=== PATIENT | male | born 1940 | race Caucasian/White ===

== ENCOUNTER → 2017-07-15 | Outpatient (CLI) | payer MEDICARE ==
--- NOTE | 2017-07-19 10:45 | RSPPFT ---
DATE OF PROCEDURE: 07/15/17 COMMENTS: VOLUMES DYNAMIC: FVC normal; FEV1 mildly reduced. STATIC: TLC, FRC mildly reduced; RV normal. FLOWS: FEV1% moderately reduced; FEF 25-75 severely reduced. DIFFUSION: Moderately reduced. FLOW VOLUME LOOP: Pattern of variable intrathoracic airways obstruction. IMPRESSION: Moderate obstruction ventilatory defect with mild restriction and a moderate reduction in diffusion. Airways resistance is increased. There is minimal improvement post-bronchodilator.
== END ==
LOC: PHRSP 10:53
PROVIDERS: ATTEND Internal Medicine
DX: J44.9 Chronic obstructive pulmonary disease, unspecified (principal)
CPT/HCPCS: 94060; 94620; 94726; 94729

== ENCOUNTER 2018-04-21 06:31 | Inpatient (IN) ==
[2018-04-21] MEDS ORDERED: Chlorhexidine Gluconate 2% 1 Pack (2 Cloths) TOPICAL SCH (07:15)
[2018-04-21] MEDS ORDERED: Metoprolol Tartrate 25 MG Tablet PO SCH (07:15)
[2018-04-21 07:30] VITALS: BP 140/68; PULSE 58; RESP 20; TEMP 98.7; O2SAT 100
[2018-04-21] MEDS ORDERED: Sodium Chlor 0.9% Inj 500 ML IV.SIG SCH (08:00)
[2018-04-21] MEDS ORDERED: Bupivacaine/Epinephrine Inj 0.25% 50 ML Vial ONE (08:03)
--- NOTE | 2018-04-21 21:51 | ECG ---
Date Performed: 04/21/2018 Time Performed: 08:07:30 PTAGE: 78 years EKG: Sinus rhythm WITH FIRST DEGREE AV BLOCK WITH OCCASIONAL SUPRAVENTRICULAR PREMATURE COMPLEXES ABNORMAL ECG PREVIOUS TRACING : 04/21/2018 06.58 Since the previous tracing, no significant change noted DOCTOR: Marissa Soliz Interpretating Date/Time 04/21/2018 21:49:39
--- NOTE | 2018-04-21 21:53 | ECG ---
Date Performed: 04/21/2018 Time Performed: 06:58:10 PTAGE: 78 years EKG: Sinus rhythm PACS ABNORMAL RHYTHM ECG NO PREVIOUS TRACING DOCTOR: Marissa Soliz Interpretating Date/Time 04/21/2018 21:52:34
== END 2018-04-21 08:50 | disposition home or self-care (01) ==
LOC: HSDI 06:31
PROVIDERS: ADMIT Surgery; ATTEND Surgery

== ENCOUNTER 2018-05-17 11:15 | Inpatient (IN) ==
[2018-05-17] MEDS ORDERED: Metoprolol Tartrate 25 MG Tablet PO ONE (11:46)
[2018-05-17] MEDS ORDERED: Chlorhexidine Gluconate 2% 1 Pack (2 Cloths) TOPICAL ONE (11:46)
[2018-05-17] MEDS ORDERED: Sodium Chlor 0.9% Inj 500 ML IV.SIG SCH (12:00)
[2018-05-17] MEDS ORDERED: ceFAZolin 2 GM Premix Inj 2 GM/100 ML BAG IV.SIG ONE (12:45)
[2018-05-17 12:49] LABS: Albumin 3.9 g/dL (3.4-5.0); Anion Gap 10 meq/L (5-15); Aspartate Aminotransferase 15 U/L (15-37); Blood Urea Nitrogen 24 mg/dL (7-18); Calcium 9.3 mg/dL (8.5-10.1); Carbon Dioxide 26.9 meq/L (21.0-32.0); Chloride 106 meq/L (98-107); Glomerular Filtration Rate 42 mL/min (>89); Glucose,Random 133 mg/dL (74-106); Potassium 4.3 meq/L (3.5-5.1); Sodium 143 meq/L (136-145)
[2018-05-17 12:52] LABS: Alanine Aminotransferase 18 U/L (12-78); Alkaline Phosphatase 54 U/L (45-117); Total Protein 7.9 g/dL (6.4-8.2)
[2018-05-17] MEDS ORDERED: ceFAZolin 2 GM/NS 100 ML IV; Q8H IV.SIG ONE ×2 (13:00)
[2018-05-17] MEDS ORDERED: Lidocaine PF 1% Inj 5 ML Syringe INFILTRATN ONE (14:15)
[2018-05-17] MEDS ORDERED: Glycopyrrolate Inj 1 MG/5 ML Syringe IV.PUSH ONE (15:00)
[2018-05-17] MEDS ORDERED: Sugammadex Inj 200 MG/2 ML Vial IV.PUSH ONE ×2 (16:04→18:29)
[2018-05-17] MEDS ORDERED: Ketorolac Inj 30 MG/ML (IVP) Vial IV.PUSH ONE (18:00)
[2018-05-17] MEDS ORDERED: fentaNYL Citrate Inj 100 MCG/2 ML Ampul ONE (18:34)
[2018-05-17 18:55] LABS: ABG Base Excess -2.7 mmol/L (-2-2); ABG PCO2 37 mmHg (38-42); ABG PO2 207 mmHG (61-120)
[2018-05-17] MEDS ORDERED: Post-op Orders (for Pharmacy) OTHER ONE (20:12)
[2018-05-17] MEDS ORDERED: Naloxone Inj 0.4 MG/ML Vial IV.PUSH PRN ×2 (20:12→20:23)
[2018-05-17] MEDS ORDERED: Benzocaine 20% Oral Spray 60 ML Can OROPHARYNG PRN (20:12)
[2018-05-17] MEDS: Morphine Inj 30 MG/30 ML PCA.VIAL PCA PRN (21:10)
[2018-05-17] MEDS: Sod Chloride 0.9% Inj 1,000 ML IV.CONT SCH (21:26)
--- NOTE | 2018-05-17 21:56 | MP ---
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 POSTOPERATIVE DIAGNOSIS: T3 N0 invasive gastric adenocarcinoma of the lesser curve of the stomach. PROCEDURES PERFORMED: 1. Robotic-assisted partial gastrectomy converted to open subtotal gastrectomy. 2. Open jejunostomy tube placement. ATTENDING SURGEON: Tru Bright MD WOOL BROKER: Staff. ANESTHESIA: General and regional TAP block. BLOOD LOSS: 200 mL. COMPLICATIONS: None. FINDINGS: 1. No definitive malignancy found on robotic partial gastrectomy of the antrum and incisura. 2. Areas of concern, although no definitive malignancy identified on frozen section of the subtotal gastrectomy specimen. INDICATIONS FOR PROCEDURE: The patient is a 78-year-old male with a previous history of multiple malignancies as well as multiple medical comorbidities, who was referred to Surgical Oncology for an incidental finding of an invasive gastric adenocarcinoma. The patient was staged with EOS and found to be T3 N0 adenocarcinoma of the stomach on biopsy. PET scan showed no metastatic disease with a hypermetabolic area at the lesser curvature of the stomach. The patient was recommended to undergo surgery, although he is at increased risk due to the concern about the morbidity of untreated gastric cancer as well potentially curable staged cancer. The patient agreed to undergo the procedure. DESCRIPTION OF PROCEDURE: The patient was taken to the operating room, placed in the supine position, and placed under general endotracheal anesthesia. The patient's abdomen was shaved, prepped and draped in sterile fashion. Timeout was performed. A Milvia direct entry technique was used to enter the abdomen above the umbilicus. Made a 1.5 cm incision with an 11 blade scalpel and we dissected down through subcutaneous tissue and opened the fascia under direct visualization. Directly entered the abdomen with S retractors and placed a 10/12 mm trocar eventually for the camera port. We then placed a 5 mm 30-degree camera into the abdomen and insufflated the abdomen. There was no evidence of any complication from our entry. There was no evidence of any metastatic disease or any obvious intraabdominal pathology. We then placed robot ports. We placed a 10/12 mm insufflator port for the robot sleeve in the most lateral right upper quadrant position under direct visualization of the laparoscope, also placed a 15 mm robot port in the left upper quadrant for the stapling device under direct visualization of the laparoscope. Finally, placed an 8 mm robotic port at the midclavicular line in the right upper quadrant under direct visualization of the laparoscope. We then at this point in time used graspers to survey the abdomen. There was no obvious malignancy seen on the laparoscopy at this time, although there was some fullness appreciated at the area of the incisura or diagnostic laparoscopy and there is no evidence of metastatic disease. I elected to proceed with the partial gastrectomy for malignancy. The robot, the [employer] Winston Si system, was then docked without difficulty. We used the vessel sealer in arm 1, the fenestrated bipolar in arm #2 and the robotic suction binding stitcher on arm 3. We were able to open up the gastrocolic ligament with the vessel sealer. We took down some adhesions with pressure behind the stomach and opened up the gastrohepatic attachments. We were able to take our dissection distally until we were just prior to the pylorus. We used 3 green loads on the robotic stapler to divide the distal stomach proximal to the pylorus without difficulty. We continued our dissection upward. We took down some of the more inferior attachments of the left gastroc at the incisura and ensuring to take any yaajira packets in this area. We then continued our dissection up past the short gastrics. We divided the stomach above the incisura and brought this horizontally across laterally towards the spleen using the green load on the robotic stapler. This essentially freed up our specimen, which was essentially the very distal body of the stomach and antrum. We de-docked to the robot camera arm and then made a small working port incision approximately 4 cm in order to remove our specimen. Specimen was removed, inspected on the back table. There is actually no evidence of any abnormality. This was sent for intraoperative consultation with pathology and no abnormality was noted at this time as well. At this point in time, I felt that the patient may still have malignancy retained, potentially more proximal or distal to our resection; therefore, I elected to open the patient to further explore the patient. We opened the patient with upper midline incision after the dedocking the da Winston Si system. This was an upper midline incision. An Saroj wound retractor was placed. The Bookwalter retractor was also placed. We did some further dissection. We did an omentectomy and passed this off for permanent processing. Omentectomy was performed with the EnSeal device. We further mobilized the pylorus and the first portion of duodenum with an EnSeal device as well as with a right angle retractor. We divided the first portion of duodenum with a blue load on the Solen GI stapler. We also divided the branches from the right gastric with a vascular white load stapler. This was passed off as pylorus. We then removed the body of the stomach by continuing our dissection superiorly up to the level of the left gastrics and taking this up to the fundus with the green loads on the Solen DONYA stapler. This was inspected on the back table and did reveal a polypoid-like mass at the lesser curve consistent with either a polyp or potentially early invasive malignancy. This was sent for pathology report and no definitive malignancy was identified either. We did open up the staple line on the body of the stomach prior to resecting this and explored this and completely mobilized the body of the stomach. It appeared pink and viable, leaving some proximal branch of the left gastric in place. We opened up the staple line of the distal margin and explored the stomach. This was essentially unremarkable. There could be no obvious malignancy on direct visualization of the entire remaining fundus and body of the stomach or with delicate palpation externally and internally. The exception to this was a small polypoid-like lesion that looked more like a polyp, although this was of some concern; therefore, I elected to go ahead and proceed with a subtotal gastrectomy to give the patient the most chance of a curative resection, although the patient did not wish to get a total gastrectomy due to the morbidity associated with this at his age. We took down further short gastrics using the EnSeal device and used green loads on the Solen stapler to divide basically the fundus where it met the body of the stomach and came across, right up to the proximal branches of the left gastric artery. This was passed off for processing by pathology. No specimen from the pylorus or from the body of the stomach was clearly a malignancy, although intraoperative consultation did recommend processing all specimens permanently to find occult malignancy. Again, at this point in time, we have performed a subtotal gastrectomy with normal appearing fundus and proceeded towards reconstruction. I have measured approximately 40 cm past the ligament of Treitz and divided this loop of intestine with the blue load on the Solen stapler. We mobilized some mesentery and brought up the distal limb as a Jones-en-Y reconstruction. We performed an antecolic retrogastric gastrojejunostomy using a blue load on the Solen stapler. The staple defect was closed with another fire on the Solen stapler without difficulty. The NG tube was passed through the stomach and down just past the anastomosis and tied into place. We followed this down and performed a JJ anastomosis, a [id number] functional end-to-end with the blue load on the Solen stapler. The staple defect was closed with a second fire of the blue load Solen stapler. We closed the mesenteric defect and oversewed the suture and staple lines of the gastrojejunostomy as well as the jejunojejunostomy. We then performed a Colten type 14-Chadian jejunostomy tube distal to our JJ anastomosis by about 15 cm. This was brought through a separate stab incision and stand up against the abdominal wall with 3-0 silk sutures. We then turned our attention towards closure. We irrigated out the abdomen until all suctioning was clear. We removed some remaining omentum from the splenic flexure down over our anastomosis of the stomach. We placed a 19-Chadian round Jeyson drain in the right upper quadrant through one of the previous robotic port incisions, laid this by the duodenal stump as well as a prior gastrojejunostomy. We then turned our attention towards closure. We closed the midline with #1 looped PDS suture. We closed the port sites with 3-0 Vicryl, followed by bayron as well as bayron at the midline incision. ATA dressing was applied and sterile dressings were applied at the staple sites. ERIC drain was placed to bulb suction. The J-tube was placed to gravity drain. The patient was discontinued anesthesia after he underwent a TAP block by Anesthesia. He was brought to the recovery room in stable condition. The patient tolerated the procedure well. No apparent complications. Counts were correct. I was present and scrubbed for the entire procedure. MD LEYLA Eugene/josh , 08:44 PM , 09:04 PM
--- NOTE | 2018-05-17 22:47 | P.CONCC ---
History of Present Illness Service: Critical Care Consult date: 05/17/18 Reason for Consult: ICU management Primary Care Provider: Hilary Johnson MD History of Present Illness: 78-year-old male with a previous history of multiple malignancies as well as multiple medical comorbidities, was referred to Surgical Oncology for an incidental finding of an invasive gastric adenocarcinoma. The patient was staged T3 N0 adenocarcinoma of the stomach on biopsy. PET scan showed no metastatic disease with a hypermetabolic area at the lesser curvature of the stomach. The patient was recommended to undergo surgery, although he was considered to be high risk due to his comorbidities. The patient agreed to undergo the procedure and underwent Robotic-assisted partial gastrectomy converted to open subtotal gastrectomy, open jejunostomy tube placement. Prior to surgery patient reported some episodes of bradycardia with nearby syncope. The procedure was uncomplicated and patient has been admitted to ICU for postoperative care management. Review of Systems All other systems reviewed negative except as stated in HPI [facility] - History History Provided By: Patient, Family Member - Medical History Medical History: Medical History (Last Reviewed 05/17/18 @ 12:12 by Linda Anderson RN) Bladder cancer COPD (chronic obstructive pulmonary disease) Chronic kidney disease Colon cancer Diabetes Diminished hearing Esophageal stricture Full dentures Glaucoma History of anesthesia reaction History of colonic polyps History of esophageal dilatation Lung cancer Restless leg syndrome Skin cancer Stomach cancer Wears hearing aid in both ears - Surgical History Surgical History: Surgical History (Last Reviewed 05/17/18 @ 12:12 by Linda Anderson RN) History of lobectomy of lung Hx of partial cystectomy History of cataract extraction with lens replacement - Tobacco History Second Hand Smoke Exposure: No Smoking Status: Never smoker - Alcohol History How Often Do You Have a Drink Containing Alcohol: Never - Substance Use History Substance History: No History of Abuse Medications and Allergies Active Medications: Active Medications Benzocaine (Hurricaine 20% Oral Coloma) 1 spray OROPHARYNG ONCE PRN PRN Reason: SEE LABEL COMMENTS Diphenhydramine HCl (Benadryl Inj) 25 mg IV.PUSH Q6H PRN PRN Reason: ITCHING Enoxaparin Sodium (Lovenox Inj) 40 mg SQ DAILY@2100 ONE Stop: 05/18/18 21:01 Lactated Ringer's (Lr 1000 Ml Inj) 1,000 mls @ 30 mls/hr IV.SIG .Q24H DAVE Stop: 05/18/18 21:19 Last Admin: 05/17/18 12:30 Dose: 30 mls/hr Sodium Chloride (Ns Inj) 500 mls @ 30 mls/hr IV.SIG .Q10H DAVE Last Admin: 05/17/18 12:58 Dose: Not Given Acetaminophen (Ofirmev Inj) 1,000 mg in 100 mls @ 400 mls/hr IV.SIG Q6H DAVE Stop: 05/18/18 16:14 Last Admin: 05/17/18 22:35 Dose: 400 mls/hr Cefazolin Sodium 1,000 mg/ (Sodium Chloride) 100 mls @ 200 mls/hr IV.SIG Q8H DAVE Stop: 05/18/18 18:29 Sodium Chloride (Ns Inj) 1,000 mls @ 100 mls/hr IV.CONT .Q10H DAVE Last Admin: 05/17/18 21:26 Dose: 100 mls/hr Metronidazole/Sodium Chloride (Flagyl 500 Mg Inj) 100 mls @ 200 mls/hr IV.SIG Q8H DAVE Stop: 05/18/18 14:29 Last Admin: 05/17/18 22:08 Dose: 200 mls/hr Morphine Sulfate (Morphine Inj) 30 mg in 30 mls @ 0 mls/hr BUFFERER UNSCH PRN PRN Reason: per BUFFERER parameters Last Admin: 05/17/18 21:10 Dose: 0 mls/hr Miscellaneous Information ([facility] Information) 1 each OTHER UNSCH PRN PRN Reason: SEE LABEL COMMENTS Stop: 05/18/18 20:29 Naloxone HCl (Narcan Inj) 0.4 mg IV.PUSH UNSCH PRN PRN Reason: SEE LABEL COMMENTS Naloxone HCl (Narcan Inj) 0.4 mg IV.PUSH PRN PRN PRN Reason: Resp rate < 10 Ondansetron HCl (Zofran Odt) 4 mg PO Q6H PRN PRN Reason: NAUSEA OR VOMITING Ondansetron HCl (Zofran Inj) 4 mg IV.PUSH Q6H PRN PRN Reason: NAUSEA OR VOMITING Allergies Allergy/AdvReac Type Severity Reaction Status Date / Time levofloxacin [From Levaquin] Allergy Palpitation Verified 05/17/18 12:56 s Home Medications Medication Instructions Recorded Confirmed Type albuterol sulfate [ProAir HFA] 1 puff INHALATION Q4-6H PRN 04/20/18 05/17/18 History brimonidine [Alphagan P] 1 drp OPHTHALMIC (EYE) BID 04/20/18 05/17/18 History calcium carbonate [Calcium 500] 600 mg PO BID 04/20/18 05/17/18 History canagliflozin [Invokana] 50 mg PO DAILY 04/20/18 05/17/18 History carbidopa-levodopa 2 tab PO HS 04/20/18 05/17/18 History cholecalciferol (vitamin D3) 1,000 unit PO BID 04/20/18 05/17/18 History [Vitamin D3] coenzyme Q10 [Co Q-10] 100 mg PO DAILY 04/20/18 05/17/18 History escitalopram oxalate 10 mg PO DAILY 04/20/18 05/17/18 History glimepiride 4 mg PO BID 04/20/18 05/17/18 History ipratropium-albuterol 3 ml INHALATION Q6-8H PRN 04/20/18 05/17/18 History pantoprazole 40 mg PO DAILY 04/20/18 05/17/18 History pioglitazone 30 mg PO DAILY 04/20/18 05/17/18 History pravastatin 40 mg PO DAILY 04/20/18 05/17/18 History temazepam 15 - 30 mg PO HS PRN 04/20/18 05/17/18 History vit C,D-Yk-dxpgs-lutein-zeaxan 1 tab PO BID 04/20/18 05/17/18 History [PreserVision AREDS 2] ascorbic acid (vitamin C) 500 mg PO BID 04/21/18 05/17/18 History aspirin [Aspirin Low Dose] 81 mg PO DAILY 04/21/18 05/17/18 History ginkgo biloba 1 cap PO DAILY 04/21/18 05/17/18 History tamsulosin [Flomax] 0.4 mg PO HS 04/21/18 05/17/18 History tiotropium bromide [Spiriva with 1 cap INHALATION DAILY 04/21/18 05/17/18 History HandiHaler] Physical Exam Vital signs: Vital Signs 05/17/18 12:00 05/17/18 20:24 Temperature 98.2 F 97.7 F Pulse Rate 72 83 Respiratory Rate 20 15 Blood Pressure 160/72 H 122/56 L Pulse Oximetry 100 95 Intake & Output 09/04/18 09/04/18 09/05/18 06:59 18:59 06:59 Intake Total 4000 / 4000 Output Total 1180 / 1180 Balance 2820 / 2820 Weight 90.5 kg Intake: Anesthesia Amount 4000 / 4000 Output: Estimated Blood Loss 200 / 200 Urine Amount (Catheter) 950 / 950 Indwelling Urethral Catheter 950 / 950 Wound Drainage 30 / 30 # 1 Abdomen 30 / 30 Other: Weight On Admission 90.5 kg - Constitutional no acute distress - Routine HEENT Exam Head: Present: normocephalic, atraumatic Eye: Present: PERRL, normal accommodation ENT: Present: mucous membranes moist - Routine Neck Exam Present: supple, full ROM. Absent: JVD, carotid bruit - Routine Respiratory Exam Absent: accessory muscle use, rhonchi, stridor, wheezes - Routine Cardiovascular Exam Present: RRR, S1, S2. Absent: murmur, gallop, rubs - Routine Abdominal Exam Present: soft. Absent: tenderness, distended - Routine Extremities Exam Absent: cyanosis, clubbing, edema - Routine Skin Exam Present: intact. Absent: cyanosis, erythema - Routine Neurological Exam Present: alert, oriented X3, moving all extremities - Detailed Neurological Exam: Coma Scale Eye Opening: Spontaneous Verbal Response: Oriented Motor Response: Obey commands Mentor Coma Scale Total: 15 - Urinary Catheter Management Indwelling Urethral Catheter Cath placed during this visit: yes Reason for continuing: Hourly intake/output Insertion date: 05/17/18 Insertion time: 14:29 Septic Shock Reassessment Septic shock perfusion: reassessment completed Assessment and Plan - Assessment and Plan Plan: Adenocarcinoma of stomach -Status post resection -Admit to ICU postop -Monitor per unit protocol -Antibiotics 24 hours -IV fluids -Further management per surgeon COPD -DuoNeb's as needed -No indication for steroid Chronic kidney disease -I's and O's -Monitor creatinine and electrolyte levels Diabetes -Insulin sliding scale DVT GI prophylaxis -Teds SCDs -Lovenox -Pepcid 35 minutes of critical care
[2018-05-18] MEDS: ceFAZolin Inj 1,000 MG in Sodium Chlor 0.9% Inj 100 ML IV.SIG SCH ×3 (02:06→18:33)
[2018-05-18 04:32] LABS: Baso % (Auto) 0.1 % (0.0-2.0); Hematocrit 36.7 % (39.0-51.0); Hemoglobin 12.3 gm/dL (13.0-17.0); Lymph # (Auto) 0.5 th/mm3 (1.0-4.8); Lymph % (Auto) 5.2 % (9.0-44.0); Mean Corpuscular HGB Conc 33.4 % (32.0-36.0); Mean Corpuscular Hemoglobin 30.6 pg (27.0-34.0); Mean Corpuscular Volume 91.4 fL (80.0-100.0); Mean Platelet Volume 8.2 fL (7.0-11.0); Mono # (Auto) 0.6 th/mm3 (0.0-0.9); Mono % (Auto) 6.2 % (0.0-8.0); Neut # (Auto) 8.5 th/mm3 (1.8-7.7); Neut % (Auto) 88.5 % (16.0-70.0); Platelet Count 113 th/mm3 (150-450); Red Blood Count 4.01 mil/mm3 (4.50-5.90); Red Cell Distribution Width 16.9 % (11.6-17.2); White Blood Count 9.6 th/mm3 (4.0-11.0)
[2018-05-18 05:03] LABS: Calcium 7.4 mg/dL (8.5-10.1); Carbon Dioxide 23.4 meq/L (21.0-32.0); Potassium 4.8 meq/L (3.5-5.1)
[2018-05-18 05:16] LABS: Total Protein 5.8 g/dL (6.4-8.2)
[2018-05-18 08:18] LABS: Lymphocytes 6 % (9-44); Ovalocytes 1+; Platelet Morphology Normal (Normal)
[2018-05-18] MEDS: Sod Chloride 0.9% Inj 1,000 ML IV.CONT SCH ×3 (09:27→22:39)
[2018-05-18] MEDS: Escitalopram 10 MG Tablet PO SCH (09:28)
[2018-05-18] MEDS: Tiotropium Bromide 18 MCG/ACT Inhaler INH SCH (09:28)
[2018-05-18] MEDS: Brimonidine 0.15% Opth Drops 5 ML Bottle EACH EYE SCH ×2 (09:28→20:52)
--- NOTE | 2018-05-18 10:40 | P.PNCC ---
Subjective Subjective Remarks/Hospital Course: 05/17: 78-year-old male with a previous history of multiple malignancies as well as multiple medical comorbidities, was referred to Surgical Oncology for an incidental finding of an invasive gastric adenocarcinoma. The patient was staged T3 N0 adenocarcinoma of the stomach on biopsy. PET scan showed no metastatic disease with a hypermetabolic area at the lesser curvature of the stomach. The patient was recommended to undergo surgery, although he was considered to be high risk due to his comorbidities. The patient agreed to undergo the procedure and underwent Robotic-assisted partial gastrectomy converted to open subtotal gastrectomy, open jejunostomy tube placement. Prior to surgery patient reported some episodes of bradycardia with nearby syncope. The procedure was uncomplicated and patient has been admitted to ICU for postoperative care management. 05/18: Resting comfortably on nasal cannula, not in any acute distress. C/o some pain over surgical site. Objective Vital Signs / I&O: Vital Signs 05/17/18 12:00 05/17/18 20:24 05/17/18 20:30 Temperature 98.2 F 97.7 F Pulse Rate 72 83 84 Respiratory Rate 20 15 15 Blood Pressure 160/72 H 122/56 L 116/51 L Pulse Oximetry 100 95 94 L 05/17/18 20:45 05/17/18 21:00 05/17/18 21:15 Temperature Pulse Rate 84 86 90 Respiratory Rate 14 14 13 Blood Pressure 147/80 H 157/72 H 154/71 H Pulse Oximetry 100 100 100 05/17/18 21:30 05/17/18 21:45 05/17/18 22:00 Temperature Pulse Rate 90 92 H 92 H Respiratory Rate 12 12 12 Blood Pressure 162/70 H 150/63 H 146/67 H Pulse Oximetry 100 100 100 05/17/18 22:15 05/17/18 22:30 05/17/18 23:28 Temperature 97.8 F Pulse Rate 93 H 90 Respiratory Rate 16 16 Blood Pressure 139/64 149/60 H Pulse Oximetry 100 96 96 05/18/18 00:00 05/18/18 03:43 05/18/18 04:00 Temperature 98.5 F 98.5 F Pulse Rate 96 H 90 Respiratory Rate 12 12 13 Blood Pressure 111/45 L 114/42 L Pulse Oximetry 97 97 05/18/18 06:00 Temperature Pulse Rate 87 Respiratory Rate Blood Pressure Pulse Oximetry Intake & Output 05/17/18 05/18/18 05/18/18 18:59 06:59 18:59 Intake Total 4500 / 4500 1000 / 1000 Output Total 2060 / 2060 Balance 2440 / 2440 1000 / 1000 Weight 90.5 kg 98.7 kg Intake: IV 500 / 500 1000 / 1000 NS Inj 1,000 ML @ 100 mls/hr IV 1000 / 1000 .CONT .Q10H DAVE Rx#:[id number] Ofirmev Inj 1,000 mg In 100 ml 200 / 200 @ 400 mls/hr IV.SIG Q6H DAVE Rx# :[id number] Ancef Inj 1,000 MG In NS Inj 100 / 100 100 ML @ 200 mls/hr IV.SIG Q8H DAVE Rx#:[id number] Flagyl 500 MG Inj 100 ML @ 200 200 / 200 mls/hr IV.SIG Q8H DAVE Rx#: [id number] Anesthesia Amount 4000 / 4000 Output: Estimated Blood Loss 200 / 200 Urine Amount (Catheter) 1750 / 1750 Indwelling Urethral Catheter 1750 / 1750 Gastric Drainage 0 / 0 Left Lower Quadrant 0 / 0 Left Nare 0 / 0 Wound Drainage 110 / 110 # 1 Abdomen 110 / 110 Other: Weight On Admission 90.5 kg Result Diagrams: 05/18/18 04:00 05/18/18 04:00 Objective Remarks: - Constitutional no acute distress - Routine HEENT Exam Head: Present: normocephalic, atraumatic Eye: Present: PERRL, normal accommodation ENT: Present: mucous membranes moist - Routine Neck Exam Present: supple, full ROM. Absent: JVD, carotid bruit - Routine Respiratory Exam Absent: accessory muscle use, rhonchi, stridor, wheezes - Routine Cardiovascular Exam Present: RRR, S1, S2. Absent: murmur, gallop, rubs - Routine Abdominal Exam Present: soft. Absent: tenderness, distended - Routine Extremities Exam Absent: cyanosis, clubbing, edema - Routine Skin Exam Present: intact. Absent: cyanosis, erythema - Routine Neurological Exam Present: alert, oriented X3, moving all extremities - Detailed Neurological Exam: Coma Scale Eye Opening: Spontaneous Verbal Response: Oriented Motor Response: Obey commands Shaan Coma Scale Total: 15 - Urinary Catheter Management Indwelling Urethral Catheter Cath placed during this visit: yes Reason for continuing: Hourly intake/output Insertion date: 05/17/18 Insertion time: 14:29 Assessment and Plan - Assessment and Plan Plan: Adenocarcinoma of stomach -Status post resection -Admit to ICU postop -Monitor per unit protocol -Antibiotics 24 hours -IV fluids -Further management per surgeon COPD -DuoNeb's as needed -No indication for steroid Chronic kidney disease -I's and O's -Monitor creatinine and electrolyte levels Diabetes -Insulin sliding scale DVT GI prophylaxis -Teds SCDs -Lovenox -Pepcid Transfer out of ICU when OK with surgery. Critical care signing off. Please reconsult if needed.
--- NOTE | 2018-05-18 11:52 | P.PNGS ---
Subjective Patient reports: no new complaints, still having pain Physical Exam Vital signs: Vital Signs 05/17/18 12:00 05/17/18 20:24 05/17/18 20:30 Temperature 98.2 F 97.7 F Pulse Rate 72 83 84 Respiratory Rate 20 15 15 Blood Pressure 160/72 H 122/56 L 116/51 L Pulse Oximetry 100 95 94 L 05/17/18 20:45 05/17/18 21:00 05/17/18 21:15 Temperature Pulse Rate 84 86 90 Respiratory Rate 14 14 13 Blood Pressure 147/80 H 157/72 H 154/71 H Pulse Oximetry 100 100 100 05/17/18 21:30 05/17/18 21:45 05/17/18 22:00 Temperature Pulse Rate 90 92 H 92 H Respiratory Rate 12 12 12 Blood Pressure 162/70 H 150/63 H 146/67 H Pulse Oximetry 100 100 100 05/17/18 22:15 05/17/18 22:30 05/17/18 23:28 Temperature 97.8 F Pulse Rate 93 H 90 Respiratory Rate 16 16 Blood Pressure 139/64 149/60 H Pulse Oximetry 100 96 96 05/18/18 00:00 05/18/18 03:43 05/18/18 04:00 Temperature 98.5 F 98.5 F Pulse Rate 96 H 90 Respiratory Rate 12 12 13 Blood Pressure 111/45 L 114/42 L Pulse Oximetry 97 97 05/18/18 06:00 05/18/18 08:00 05/18/18 10:00 Temperature 98.6 F Pulse Rate 87 84 85 Respiratory Rate 11 L Blood Pressure 104/53 L Pulse Oximetry 97 Intake & Output 05/17/18 05/18/18 05/18/18 18:59 06:59 18:59 Intake Total 4500 / 4500 1200 / 1200 Output Total 2060 / 2060 Balance 2440 / 2440 1200 / 1200 Weight 90.5 kg 98.7 kg Intake: IV 500 / 500 1200 / 1200 NS Inj 1,000 ML @ 100 mls/hr IV 1000 / 1000 .CONT .Q10H [facility] Rx#:[id number] Ofirmev Inj 1,000 mg In 100 ml 200 / 200 100 / 100 @ 400 mls/hr IV.SIG Q6H [facility] Rx# :[id number] Ancef Inj 1,000 MG In NS Inj 100 / 100 100 / 100 100 ML @ 200 mls/hr IV.SIG Q8H [facility] Rx#:[id number] Flagyl 500 MG Inj 100 ML @ 200 200 / 200 mls/hr IV.SIG Q8H [facility] Rx#: [id number] Anesthesia Amount 4000 / 4000 Output: Estimated Blood Loss 200 / 200 Urine Amount (Catheter) 1750 / 1750 Indwelling Urethral Catheter 1750 / 1750 Gastric Drainage 0 / 0 Left Lower Quadrant 0 / 0 Left Nare 0 / 0 Wound Drainage 110 / 110 # 1 Abdomen 110 / 110 Other: Date of Last Bowel Movement 05/17/18 Weight On Admission 90.5 kg - Constitutional no acute distress - Routine Respiratory Exam Present: CTA bilaterally - Routine Cardiovascular Exam Present: RRR - Routine Abdominal Exam Present: soft Comments: surgical pain, ERIC SS, inc c/d/i - Urinary Catheter Management Indwelling Urethral Catheter Cath placed during this visit: yes Reason for continuing: Hourly intake/output Insertion date: 05/17/18 Insertion time: 14:29 Assessment and Plan - Assessment (1) Primary adenocarcinoma of body of stomach Code(s): C16.2 - Malignant neoplasm of body of stomach Status: Acute - Plan 78yo male POD#1 Robotic Partial gastrectomy, converted to subtotal gastrectomy, RNY reconstruction and j-tube, stable. - pain ok - VSS, AF, UOP good - j tube to gravity, NG to LIS - OOB, ok to floor
--- NOTE | 2018-05-18 15:48 | MB ---
cc: Herson Barrera MD DATE: 05/18/2018 HISTORY OF PRESENT ILLNESS: Iam is a very pleasant 78-year-old gentleman with a history of recently diagnosed gastric cancer, status post resection by robotic device. Consult is obtained for history of near syncope and bradycardia. Currently, the patient denies chest pain, fevers, chills, cough, GI or bleeding, PND or orthopnea. PAST MEDICAL HISTORY: Per of history of present illness. He has a history of bladder cancer, chronic renal insufficiency, colon cancer, COPD, diabetes, esophageal stricture, glaucoma, colonic polyps, status post esophageal dilatation lung cancer, restless leg syndrome, skin cancer, stomach cancer, cataract extraction, lobectomy of the lung. ALLERGIES: LEVOFLOXACIN. SOCIAL HISTORY: Denies tobacco use, denies alcohol use. MEDICATIONS: 1. Aspirin 81 mg a day. 2. Carbidopa/levodopa. 3. Cefazolin. 4. Lovenox 40 subcutaneously daily. 5. Lexapro 10 mg daily. 6. Spiriva 18 mcg inhaler daily. PHYSICAL EXAMINATION: VITAL SIGNS: Pulse ranging between 72-84, blood pressure 93/65, respiratory rate 15, temperature 98.4. GENERAL: He is alert and oriented x3, in no acute distress. NECK: Supple. No JVD. No bruit. CARDIOVASCULAR: S1, S2. No murmurs, rubs or gallops. LUNGS: Clear to auscultation bilaterally. ABDOMEN: Soft, nontender, nondistended with positive bowel sounds. EXTREMITIES: No lower extremity edema. LABORATORY DATA: White count 9.6, hemoglobin 12.3, hematocrit 36.7, platelet count 113. Blood gas, PH of 7.39, pCO2 of 37, pO2 of 27 on 55% oxygen. Sodium 142, potassium 4.8, chloride 107, bicarbonate 23.4, BUN 21, creatinine 1.36, calcium 7.4. DIAGNOSES: 1. Near syncope. 2. Hypotension. 3. Bradycardia. 4. Gastric cancer. 5. Chronic renal insufficiency. 6. Hypoxia. 7. Anemia. 8. Thrombocytopenia. DISCUSSION: At this point in time, I have reviewed the chart with the nurse at the bedside. There is no documented bradycardia. Suspect the patient's near syncope may be related to hypotension. At this point in time, recommend supportive care. We will get a 2-D echocardiogram and carotid ultrasound as well. MD MYLES Henderson/andrea , 03:27 PM , 03:34 PM
--- NOTE | 2018-05-18 20:58 | US ---
EXAM DATE: 05/18/2018 8:55 PM EDT AGE/SEX: 78 years / Male INDICATIONS: Syncope. CLINICAL DATA: This is the patient's initial encounter. Patient reports that signs and symptoms have been present for 1 day and indicates a pain score of 0/10. MEDICAL/SURGICAL HISTORY: Chronic obstructive pulmonary disease. Bladder cancer. Chronic kidney disease. Colon cancer. Diabetes. Esophageal stricture. Dentures. Lung cancer. Skin cancer. Stomach c ancer. . Cataract extraction with lens replacement. Lobectomy of lung. Cystectomy. COMPARISON: No prior exams available for comparison. VELOCITY PARAMETERS: ICA/CCA Ratio: Right 1.0 , Left 0.8 ICA: Right 108 cm/sec, Left 128 cm/sec CCA: Right 112 cm/sec, Left 166 cm/sec ECA: Right 294 cm/sec, Left 116 cm/sec Vertebral: Right 139 cm/sec antegrade, Left 60 cm/sec antegrade FINDINGS: Right Carotid: Moderate arteriosclerotic plaque is visualized. Greater than 70% stenosis involving t he right external carotid artery is noted. The waveforms are within normal limits. Left Carotid: Mild arteriosclerotic plaque is visualized. The waveforms are within normal limits. Other: None. CONCLUSION: 1. Right Internal Carotid Artery: No hemodynamically significant stenosis. 2. Left Internal Carotid Artery: No hemodynamically significant stenosis. Electronically signed by: Jeff Molina MD 05/18/2018 8:57 PM EDT
[2018-05-18] MEDS ORDERED: Enoxaparin Inj 40 MG/0.4 ML Syringe SQ ONE (21:00)
[2018-05-19] MEDS: Sod Chloride 0.9% Inj 1,000 ML IV.CONT SCH ×4 (03:00→22:53)
[2018-05-19] MEDS: Escitalopram 10 MG Tablet PO SCH (08:00)
[2018-05-19] MEDS: Tiotropium Bromide 18 MCG/ACT Inhaler INH SCH (08:00)
[2018-05-19] MEDS: Brimonidine 0.15% Opth Drops 5 ML Bottle EACH EYE SCH ×2 (08:00→20:48)
[2018-05-19] MEDS: Morphine Inj 30 MG/30 ML PCA.VIAL PCA PRN (09:04)
--- NOTE | 2018-05-19 13:14 | P.PNCA ---
Subjective Interval history: alert in nad Physical Exam Vital signs: Vital Signs 05/18/18 14:00 05/18/18 16:00 05/18/18 18:00 Temperature 99.1 F Pulse Rate 84 86 90 Respiratory Rate 25 H Blood Pressure 109/49 L Pulse Oximetry 96 05/18/18 20:00 05/19/18 00:00 05/19/18 04:00 Temperature 98.8 F 98.7 F 98.9 F Pulse Rate 88 86 80 Respiratory Rate 19 17 17 Blood Pressure 109/84 128/60 126/56 L Pulse Oximetry 97 92 L 94 L 05/19/18 06:00 Temperature Pulse Rate 80 Respiratory Rate Blood Pressure Pulse Oximetry Intake & Output 05/18/18 05/19/18 05/19/18 18:59 06:59 18:59 Intake Total 1400 / 1400 2100 / 2100 1000 / 1000 Output Total 535 / 535 1485 / 1485 Balance 865 / 865 615 / 615 1000 / 1000 Weight 90.5 kg Intake: IV 1400 / 1400 2100 / 2100 1000 / 1000 NS Inj 1,000 ML @ 100 mls/hr IV 1000 / 1000 1000 / 1000 1000 / 1000 .CONT .Q10H [facility] Rx#:[id number] Ofirmev Inj 1,000 mg In 100 ml 200 / 200 @ 400 mls/hr IV.SIG Q6H [facility] Rx# :[id number] LR 1000 mL Inj 1,000 ML @ 30 1000 / 1000 mls/hr IV.SIG .Q24H [facility] Rx#: [id number] Ancef Inj 1,000 MG In NS Inj 100 / 100 100 / 100 100 ML @ 200 mls/hr IV.SIG Q8H [facility] Rx#:[id number] Flagyl 500 MG Inj 100 ML @ 200 100 / 100 mls/hr IV.SIG Q8H [facility] Rx#: [id number] Output: Urine Amount (Catheter) 475 / 475 1300 / 1300 Indwelling Urethral Catheter 475 / 475 1300 / 1300 Gastric Drainage 160 / 160 Left Lower Quadrant 150 / 150 Left Nare 10 / 10 Wound Drainage 60 / 60 25 / 25 # 1 Abdomen 60 / 60 25 / 25 Other: Date of Last Bowel Movement 05/17/18 05/17/18 - Urinary Catheter Management Indwelling Urethral Catheter Cath placed during this visit: yes Reason for continuing: Hourly intake/output Insertion date: 05/17/18 Insertion time: 14:29 Assessment and Plan - Assessment (1) Hypotension Code(s): I95.9 - Hypotension, unspecified Status: Acute (2) Near syncope Code(s): R55 - Syncope and collapse Status: Acute (3) Primary adenocarcinoma of body of stomach Code(s): C16.2 - Malignant neoplasm of body of stomach Status: Acute - Plan 1.) Near syncope - assymptomatic lying in bed, hemodynamically stable, no documented bradycardia
--- NOTE | 2018-05-19 13:29 | P.PNGS ---
Subjective Patient reports: no new complaints, feels better, pain is less Physical Exam Vital signs: Vital Signs 05/18/18 14:00 05/18/18 16:00 05/18/18 18:00 Temperature 99.1 F Pulse Rate 84 86 90 Respiratory Rate 25 H Blood Pressure 109/49 L Pulse Oximetry 96 05/18/18 20:00 05/19/18 00:00 05/19/18 04:00 Temperature 98.8 F 98.7 F 98.9 F Pulse Rate 88 86 80 Respiratory Rate 19 17 17 Blood Pressure 109/84 128/60 126/56 L Pulse Oximetry 97 92 L 94 L 05/19/18 06:00 Temperature Pulse Rate 80 Respiratory Rate Blood Pressure Pulse Oximetry Intake & Output 05/18/18 05/19/18 05/19/18 18:59 06:59 18:59 Intake Total 1400 / 1400 2100 / 2100 1000 / 1000 Output Total 535 / 535 1485 / 1485 Balance 865 / 865 615 / 615 1000 / 1000 Weight 90.5 kg Intake: IV 1400 / 1400 2100 / 2100 1000 / 1000 NS Inj 1,000 ML @ 100 mls/hr IV 1000 / 1000 1000 / 1000 1000 / 1000 .CONT .Q10H [facility] Rx#:[id number] Ofirmev Inj 1,000 mg In 100 ml 200 / 200 @ 400 mls/hr IV.SIG Q6H [facility] Rx# :[id number] LR 1000 mL Inj 1,000 ML @ 30 1000 / 1000 mls/hr IV.SIG .Q24H [facility] Rx#: [id number] Ancef Inj 1,000 MG In NS Inj 100 / 100 100 / 100 100 ML @ 200 mls/hr IV.SIG Q8H [facility] Rx#:[id number] Flagyl 500 MG Inj 100 ML @ 200 100 / 100 mls/hr IV.SIG Q8H [facility] Rx#: [id number] Output: Urine Amount (Catheter) 475 / 475 1300 / 1300 Indwelling Urethral Catheter 475 / 475 1300 / 1300 Gastric Drainage 160 / 160 Left Lower Quadrant 150 / 150 Left Nare 10 / 10 Wound Drainage 60 / 60 25 / 25 # 1 Abdomen 60 / 60 25 / 25 Other: Date of Last Bowel Movement 05/17/18 05/17/18 - Constitutional no acute distress - Routine Abdominal Exam Present: soft Comments: inc c/d/i, NG with small old blood - Urinary Catheter Management Indwelling Urethral Catheter Cath placed during this visit: yes Reason for continuing: Hourly intake/output Insertion date: 05/17/18 Insertion time: 14:29 Assessment and Plan - Assessment (1) Primary adenocarcinoma of body of stomach Code(s): C16.2 - Malignant neoplasm of body of stomach Status: Acute - Plan 78yo male POD#1 Robotic Partial gastrectomy, converted to subtotal gastrectomy, RNY reconstruction and j-tube, stable. - pain ok - VSS, AF, UOP good - j tube to gravity, place NG to gravity - OOB today, ok to floor
--- NOTE | 2018-05-19 16:19 | ECHRPT ---
Indication: Cardiomyopathy, unspecified CONCLUSIONS Technically difficult study making assessment of regional wall motion difficult. The apex is not we ll visualized. No definite wall motion abnormalities are seen. Left ventricular systolic function guy ears normal with an estimated ejection fraction in the range of 55-60%. Normal left ventricular size. Wall thickness is normal. The left atrial size is mildly dilated. Mild mitral annular calcification. There is mild tricuspid regurgitation. The estimated pulmonary arterial pressure is 45 mmHg. Mild to moderate calcification of the aortic valve which is trileaflet. BP: / HR: Rhythm: Sinus MEASUREMENTS (Male / Female) Normal Values Technical Quality:Good 2D ECHO LV Diastolic Diameter PLAX 4.3 cm 4.2 - 5.9 / 3.9 - 5.3 cm LV Systolic Diameter PLAX 3.2 cm IVS Diastolic Thickness 1.0 cm 0.6 - 1.0 / 0.6 - 0.9 cm LVPW Diastolic Thickness 1.0 cm 0.6 - 1.0 / 0.6 - 0.9 cm LV Relative Wall Thickness 0.5 LVOT Diameter 2.6 cm M-MODE Aortic Root Diameter MM 3.1 cm LA Systolic Diameter MM 4.4 cm LA Ao Ratio MM 1.4 AV Cusp Separation MM 0.9 cm DOPPLER AV Peak Velocity 316.5 cm/s AV Peak Gradient 40.1 mmHg AV Mean Gradient 23.0 mmHg AV Velocity Time Integral 62.0 cm LVOT Peak Velocity 108.5 cm/s LVOT Peak Gradient 4.7 mmHg LVOT Velocity Time Integral 17.6 cm AV Area Cont Eq vti 1.5 cm AV Area Cont Eq pk 1.8 cm MR Peak Velocity 392.0 cm/s MR Peak Gradient 61.5 mmHg Mitral E Point Velocity 110.5 cm/s Mitral A Point Velocity 117.0 cm/s Mitral E to A Ratio 0.9 LV E' Lateral Velocity 7.2 cm/s Mitral E to LV E' Lateral Ratio 15.3 LV E' Septal Velocity 6.3 cm/s Mitral E to LV E' Septal Ratio 17.4 TR Peak Velocity 307.0 cm/s TR Peak Gradient 37.7 mmHg Right Atrial Pressure 10.0 mmHg Pulmonary Artery Systolic Pressu 47.7 mmHg Right Ventricular Systolic Press 47.7 mmHg PV Peak Velocity 162.0 cm/s PV Peak Gradient 10.5 mmHg FINDINGS LEFT VENTRICLE Technically difficult study making assessment of regional wall motion difficult. The apex is not we ll visualized. No definite wall motion abnormalities are seen. Left ventricular systolic function guy ears normal with an estimated ejection fraction in the range of 55-60%. Normal left ventricular size. Wall thickness is normal. LEFT ATRIUM The left atrial size is mildly dilated. MITRAL VALVE Mild mitral annular calcification. AORTIC VALVE Mild to moderate calcification of the aortic valve which is trileaflet. TRICUSPID VALVE There is mild tricuspid regurgitation. The estimated pulmonary arterial pressure is 45 mmHg. Solo Yu MD (Electronically Signed) Final Date:19 May 2018 16:18
[2018-05-20] MEDS: Sod Chloride 0.9% Inj 1,000 ML IV.CONT SCH ×2 (10:08→20:56)
[2018-05-20] MEDS: Brimonidine 0.15% Opth Drops 5 ML Bottle EACH EYE SCH ×2 (10:10→20:56)
[2018-05-20] MEDS: Escitalopram 10 MG Tablet PO SCH (10:12)
[2018-05-20] MEDS: Tiotropium Bromide 18 MCG/ACT Inhaler INH SCH (10:14)
--- NOTE | 2018-05-20 11:42 | P.PNCA ---
Subjective Interval history: alert in nad, ngt in place Physical Exam Vital signs: Vital Signs 05/19/18 12:00 05/19/18 16:00 05/19/18 20:14 Temperature 99.1 F 99.1 F 99.8 F H Pulse Rate 70 78 88 Respiratory Rate 17 12 21 Blood Pressure 123/57 L 154/72 H 146/67 H Pulse Oximetry 97 96 92 L 05/20/18 00:04 05/20/18 04:39 Temperature 99.1 F 98.6 F Pulse Rate 95 H 80 Respiratory Rate 21 18 Blood Pressure 169/74 H 155/76 H Pulse Oximetry 92 L 96 Intake & Output 05/19/18 05/20/18 05/20/18 18:59 06:59 18:59 Intake Total 1000 / 1000 1000 / 1000 1000 / 1000 Output Total 1100 / 1100 2060 / 2060 Balance -100 / -100 -1060 / -1060 1000 / 1000 Weight 90.5 kg Intake: IV 1000 / 1000 1000 / 1000 1000 / 1000 NS Inj 1,000 ML @ 100 mls/hr IV 1000 / 1000 1000 / 1000 1000 / 1000 .CONT .Q10H [facility] Rx#:[id number] Output: Urine 1800 / 1800 Urine Amount (Catheter) 850 / 850 Indwelling Urethral Catheter 850 / 850 Gastric Drainage 150 / 150 230 / 230 Left Lower Quadrant 200 / 200 Left Nare 150 / 150 Nasogastric Tube 30 / 30 Wound Drainage 100 / 100 30 / 30 # 1 Abdomen 100 / 100 30 / 30 Other: Date of Last Bowel Movement 05/17/18 - Urinary Catheter Management Indwelling Urethral Catheter Cath placed during this visit: yes Reason for continuing: Not indwelling catheter Insertion date: 05/17/18 Insertion time: 14:29 Assessment and Plan - Assessment (1) Hypotension Code(s): I95.9 - Hypotension, unspecified Status: Acute (2) Near syncope Code(s): R55 - Syncope and collapse Status: Acute (3) Primary adenocarcinoma of body of stomach Code(s): C16.2 - Malignant neoplasm of body of stomach Status: Acute - Plan 1.) Near syncope - assymptomatic lying in bed, hemodynamically stable, no documented bradycardia
--- NOTE | 2018-05-20 15:00 | P.PNGS ---
Subjective Interval history: Up to chair Worried about urinary output Physical Exam Vital signs: Vital Signs 05/19/18 16:00 05/19/18 20:14 05/20/18 00:04 Temperature 99.1 F 99.8 F H 99.1 F Pulse Rate 78 88 95 H Respiratory Rate 12 21 21 Blood Pressure 154/72 H 146/67 H 169/74 H Pulse Oximetry 96 92 L 92 L 05/20/18 04:39 05/20/18 08:00 05/20/18 12:00 Temperature 98.6 F 98.9 F 98.6 F Pulse Rate 80 93 H 64 Respiratory Rate 18 18 18 Blood Pressure 155/76 H 148/67 H 137/68 Pulse Oximetry 96 96 94 L Intake & Output 05/19/18 05/20/18 05/20/18 18:59 06:59 18:59 Intake Total 1000 / 1000 1000 / 1000 1000 / 1000 Output Total 1100 / 1100 2060 / 2060 Balance -100 / -100 -1060 / -1060 1000 / 1000 Weight 90.5 kg Intake: IV 1000 / 1000 1000 / 1000 1000 / 1000 NS Inj 1,000 ML @ 100 mls/hr IV 1000 / 1000 1000 / 1000 1000 / 1000 .CONT .Q10H [facility] Rx#:[id number] Output: Urine 1800 / 1800 Urine Amount (Catheter) 850 / 850 Indwelling Urethral Catheter 850 / 850 Gastric Drainage 150 / 150 230 / 230 Left Lower Quadrant 200 / 200 Left Nare 150 / 150 Nasogastric Tube 30 / 30 Wound Drainage 100 / 100 30 / 30 # 1 Abdomen 100 / 100 30 / 30 Other: Date of Last Bowel Movement 05/17/18 Narrative: Alert and awake Abd: ATA in place with good seal; J tube to gravity bag; NGT removed at bedside ; ERIC with bloody drainage - Urinary Catheter Management Indwelling Urethral Catheter Cath placed during this visit: yes Reason for continuing: Not indwelling catheter Insertion date: 05/17/18 Insertion time: 14:29 Assessment and Plan - Assessment (1) Primary adenocarcinoma of body of stomach Code(s): C16.2 - Malignant neoplasm of body of stomach Status: Acute Plan: 78 year old male POD3 robotic partial gastrectomy; converted to subtotal gastrectomy; RNY reconstruction and J tube placement -DC NGT -Okay for ice chips, sips of water and popsicles -Continue J tube to gravity -Continue to monitor ERIC ---- bloody drainage---if continues or increased will plan to hold Lovenox -IVF + [employer] -Restart home meds --okay to take with a sip of water -Check bladder scan---if greater than 250 cc--- insert Anderson - Attending Attestation The exam, history, and the medical decision-making described in the above note were completed with the assistance of the mid-level provider. I reviewed and agree with the findings presented. I attest that I had a [id number] encounter with the patient on the same day, and personally performed and documented my assessment and findings in the medical record. 78yo male s/p subtotal gastrectomy, stable postop. continue to increase diet as tolerated continue pulmonary support, likely atelectasis
[2018-05-21] MEDS: Sod Chloride 0.9% Inj 1,000 ML IV.CONT SCH ×2 (06:42→16:30)
[2018-05-21] MEDS: Morphine Inj 30 MG/30 ML PCA.VIAL PCA PRN (07:12)
[2018-05-21] MEDS: Escitalopram 10 MG Tablet PO SCH (09:08)
[2018-05-21] MEDS: Brimonidine 0.15% Opth Drops 5 ML Bottle EACH EYE SCH ×2 (09:09→21:18)
[2018-05-21] MEDS: Tiotropium Bromide 18 MCG/ACT Inhaler INH SCH (09:09)
--- NOTE | 2018-05-21 11:12 | P.PNCA ---
Subjective Interval history: alert in nad Physical Exam Vital signs: Vital Signs 05/20/18 12:00 05/20/18 20:34 05/20/18 21:45 Temperature 98.6 F 99.7 F H Pulse Rate 64 97 H 80 Respiratory Rate 18 20 18 Blood Pressure 137/68 157/79 H Pulse Oximetry 94 L 95 95 05/21/18 00:14 05/21/18 04:38 05/21/18 08:00 Temperature 97.6 F 98.1 F 98.1 F Pulse Rate 88 82 80 Respiratory Rate 18 18 18 Blood Pressure 116/58 L 160/79 H 146/69 H Pulse Oximetry 95 96 95 05/21/18 09:05 05/21/18 09:31 Temperature Pulse Rate 80 Respiratory Rate 17 18 Blood Pressure Pulse Oximetry 95 Intake & Output 05/20/18 05/21/18 05/21/18 18:59 06:59 18:59 Intake Total 1000 / 1000 2240 / 2240 Output Total 1880 / 1880 Balance 1000 / 1000 360 / 360 Weight 90.5 kg Intake: IV 1000 / 1000 1999 NS Inj 1,000 ML @ 100 mls/hr IV 1000 / 1000 1999 .CONT .Q10H [facility] Rx#:[id number] Oral 240 / 240 Output: Urine 1800 / 1800 Gastric Drainage 30 / 30 Left Lower Quadrant 30 / 30 Wound Drainage 50 / 50 # 1 Abdomen 50 / 50 - Urinary Catheter Management Indwelling Urethral Catheter Cath placed during this visit: yes Reason for continuing: Not indwelling catheter Insertion date: 05/17/18 Insertion time: 14:29 Assessment and Plan - Assessment (1) Hypotension Code(s): I95.9 - Hypotension, unspecified Status: Acute (2) Near syncope Code(s): R55 - Syncope and collapse Status: Acute (3) Primary adenocarcinoma of body of stomach Code(s): C16.2 - Malignant neoplasm of body of stomach Status: Acute - Plan 1.) Near syncope - assymptomatic lying in bed, hemodynamically stable, no documented bradycardia
--- NOTE | 2018-05-21 17:07 | P.PN ---
Subjective Interval history: Reported being slightly short of breath when walking twice the distance today. Did not have oxygen on when he did this. Physical Exam Vital signs: Vital Signs 05/20/18 20:34 05/20/18 21:45 05/21/18 00:14 Temperature 99.7 F H 97.6 F Pulse Rate 97 H 80 88 Respiratory Rate 20 18 18 Blood Pressure 157/79 H 116/58 L Pulse Oximetry 95 95 95 05/21/18 04:38 05/21/18 08:00 05/21/18 09:05 Temperature 98.1 F 98.1 F Pulse Rate 82 80 Respiratory Rate 18 18 17 Blood Pressure 160/79 H 146/69 H Pulse Oximetry 96 95 05/21/18 09:31 05/21/18 12:00 05/21/18 14:23 Temperature 97.8 F Pulse Rate 80 87 87 Respiratory Rate 18 18 18 Blood Pressure 158/73 H Pulse Oximetry 95 96 05/21/18 16:00 Temperature 98.0 F Pulse Rate 96 H Respiratory Rate Blood Pressure 157/81 H Pulse Oximetry Intake & Output 05/20/18 05/21/18 05/21/18 18:59 06:59 18:59 Intake Total 1000 / 1000 2240 / 2240 1960 / 1960 Output Total 1880 / 1880 850 / 850 Balance 1000 / 1000 360 / 360 1110 / 1110 Weight 90.5 kg Intake: IV 1000 / 1000 2000 / 2000 1000 / 1000 NS Inj 1,000 ML @ 100 mls/hr IV 1000 / 1000 2000 / 2000 1000 / 1000 .CONT .Q10H [facility] Rx#:[id number] Oral 240 / 240 960 / 960 Output: Urine 1800 / 1800 850 / 850 Gastric Drainage 30 / 30 Left Lower Quadrant 30 / 30 Wound Drainage 50 / 50 # 1 Abdomen 50 / 50 Other: # Voids 1 - Constitutional no acute distress - Routine HEENT Exam Head: Present: normocephalic, atraumatic ENT: Present: mucous membranes moist - Routine Respiratory Exam Present: decreased breath sounds (Bilaterally) - Routine Cardiovascular Exam Present: RRR - Routine Abdominal Exam Present: soft, wound (Dressing dry) - Urinary Catheter Management Indwelling Urethral Catheter Cath placed during this visit: yes Reason for continuing: Not indwelling catheter Insertion date: 05/17/18 Insertion time: 14:29 Results - Labs CBC & Chem 7: 05/18/18 04:00 09/05/18 04:00 Laboratory Results - last 24 hr 05/20/18 18:37 POC Glucose 109 Assessment and Plan - Assessment (1) Primary adenocarcinoma of body of stomach Code(s): C16.2 - Malignant neoplasm of body of stomach Status: Acute Plan: Stable postop resection. Await return of bowel function before advancing diet, per Dr. Bright. Lovenox already held as he has bloody output from his ERIC drain still. We will recheck labs in a.m. Check chest x-ray today for shortness of breath. Suspect he has atelectasis and /or small pleural effusions contributing to this and not pneumonia, as he has no chills fever or other signs. - Attending Attestation I attest that I had a [id number] encounter with the patient on the same day, and personally performed and documented my assessment and findings in the medical record. The following services were provided during this hospital visit: Chart data review, vital sign assessments/reviewing monitor data Review of consultation notes if present Medication orders/review and/or management Ordering and/or reviewing lab tests Ordering and/or interpreting/reviewing x-rays and/or diagnostic studies Care of the patient and discussion of the patient with the care team Documentation time To help prompt me to consider important information that might be impacting today's encounter and assessment, Information from prior notes written by myself or my colleagues may have been "brought forward/copy and pasted" into today's note.
--- NOTE | 2018-05-21 17:25 | XR ---
EXAM DATE: 05/21/2018 5:21 PM EDT AGE/SEX: 78 years / Male INDICATIONS: Shortness of breath. CLINICAL DATA: This is the patient's initial encounter. Patient reports that signs and symptoms have been present for 1 day and indicates a pain score of 0/10. MEDICAL/SURGICAL HISTORY: . Chronic obstructive pulmonary disease. Bladder cancer. Chronic kidn ey disease. Colon cancer. Diabetes. Esophageal stricture. Dentures. Lung cancer. Skin cancer. Stomach cancer. . Cataract extraction with lens replacement. Lobectomy of lung. Cystectomy COMPARISON: No prior exams available for comparison. FINDINGS: A single AP semierect portable view of the chest was obtained. There is abnormal opacity in the left lung base with partial obscuration of left hemidiaphragm and blunting of the left costophrenic angle. The heart size appears at the upper limits of normal. Atherosclerotic changes are present in the aor ta. The right lung is clear. The bony thorax is intact in appearance. CONCLUSION: Abnormal opacity in the left lung base with blunting of the costophrenic angle which could indicate i nfiltrate and/or effusion. Electronically signed by: Rohit Martinez MD 05/21/2018 5:24 PM EDT
[2018-05-22] MEDS: Sod Chloride 0.9% Inj 1,000 ML IV.CONT SCH ×3 (00:03→20:18)
[2018-05-22 07:01] LABS: Baso % (Auto) 0.7 % (0.0-2.0); Eos # (Auto) 0.2 th/mm3 (0.0-0.4); Eos % (Auto) 3.1 % (0.0-4.0); Hematocrit 35.2 % (39.0-51.0); Hemoglobin 11.7 gm/dL (13.0-17.0); Lymph % (Auto) 20.2 % (9.0-44.0); Mean Corpuscular HGB Conc 33.2 % (32.0-36.0); Mean Corpuscular Hemoglobin 30.5 pg (27.0-34.0); Mean Corpuscular Volume 91.9 fL (80.0-100.0); Mean Platelet Volume 8.7 fL (7.0-11.0); Mono # (Auto) 0.6 th/mm3 (0.0-0.9); Mono % (Auto) 11.3 % (0.0-8.0); Neut # (Auto) 3.3 th/mm3 (1.8-7.7); Neut % (Auto) 64.7 % (16.0-70.0); Platelet Count 139 th/mm3 (150-450); Red Blood Count 3.83 mil/mm3 (4.50-5.90); Red Cell Distribution Width 15.5 % (11.6-17.2); White Blood Count 5.2 th/mm3 (4.0-11.0)
[2018-05-22] MEDS: Escitalopram 10 MG Tablet PO SCH (08:12)
[2018-05-22] MEDS: Tiotropium Bromide 18 MCG/ACT Inhaler INH SCH (08:14)
[2018-05-22] MEDS: Brimonidine 0.15% Opth Drops 5 ML Bottle EACH EYE SCH ×2 (08:14→20:25)
--- NOTE | 2018-05-22 10:05 | P.DIET ---
Nutritional Evaluation Screening comments: NPO ALERT X 3 DAYS. PLEASE CONSULT DIETITIAN IF NEEDED.
--- NOTE | 2018-05-22 12:12 | P.PNCA ---
Subjective Interval history: moderately dyspnic and mildly lightheaded transferring from bed to chair Physical Exam Vital signs: Vital Signs 05/21/18 14:23 05/21/18 16:00 05/21/18 20:00 Temperature 98.0 F Pulse Rate 87 96 H 92 H Respiratory Rate 18 20 Blood Pressure 157/81 H 158/82 H Pulse Oximetry 95 05/22/18 00:00 05/22/18 07:00 05/22/18 08:00 Temperature 99.1 F 98.4 F Pulse Rate 83 78 70 Respiratory Rate 20 16 16 Blood Pressure 110/55 L 167/70 H Pulse Oximetry 94 L 94 L 05/22/18 09:00 Temperature Pulse Rate Respiratory Rate Blood Pressure Pulse Oximetry 95 Intake & Output 05/21/18 05/22/18 05/22/18 18:59 06:59 18:59 Intake Total 1960 / 1960 1000 / 1000 1000 / 1000 Output Total 880 / 880 50 / 50 Balance 1080 / 1080 950 / 950 1000 / 1000 Weight 89.1 kg Intake: IV 1000 / 1000 1000 / 1000 1000 / 1000 NS Inj 1,000 ML @ 100 mls/hr IV 1000 / 1000 1000 / 1000 1000 / 1000 .CONT .Q10H [facility] Rx#:[id number] Oral 960 / 960 Output: Urine 850 / 850 Gastric Drainage 0 / 0 Left Lower Quadrant 0 / 0 Wound Drainage 30 / 30 50 / 50 # 1 Abdomen 30 / 30 50 / 50 Other: # Voids 1 - Urinary Catheter Management Indwelling Urethral Catheter Cath placed during this visit: yes Reason for continuing: Not indwelling catheter Insertion date: 05/17/18 Insertion time: 14:29 Assessment and Plan - Assessment (1) Hypotension Code(s): I95.9 - Hypotension, unspecified Status: Acute (2) Near syncope Code(s): R55 - Syncope and collapse Status: Acute (3) Primary adenocarcinoma of body of stomach Code(s): C16.2 - Malignant neoplasm of body of stomach Status: Acute - Plan 1.) Near syncope - assymptomatic sitting in chair, symptomatic with dypnea and light headedness transferring from bed to chair, will f/u trends, hemodynamically stable, no documented bradycardia
--- NOTE | 2018-05-22 16:40 | P.PNGS ---
Subjective Patient reports: feels better, shortness of breath ( said he was short of breath while walking and his saturations went down to 85%) Interval history: DAILY PROGRESS NOTE FOR SURGICAL ATTENDING, DR. MARICEL ACKERMAN Physical Exam Vital signs: Vital Signs 05/21/18 20:00 05/22/18 00:00 05/22/18 07:00 Temperature 99.1 F Pulse Rate 92 H 83 78 Respiratory Rate 20 20 16 Blood Pressure 158/82 H 110/55 L Pulse Oximetry 95 94 L 05/22/18 08:00 05/22/18 09:00 05/22/18 12:00 Temperature 98.4 F 97.9 F Pulse Rate 70 122 H Respiratory Rate 16 16 Blood Pressure 167/70 H 105/62 Pulse Oximetry 94 L 95 97 05/22/18 16:10 Temperature Pulse Rate 110 H Respiratory Rate 16 Blood Pressure Pulse Oximetry Intake & Output 05/21/18 05/22/18 05/22/18 18:59 06:59 18:59 Intake Total 1959 / 1959 1000 / 1000 1000 / 1000 Output Total 880 / 880 50 / 50 30 / 30 Balance 1080 / 1080 950 / 950 970 / 970 Weight 89.1 kg Intake: IV 1000 / 1000 1000 / 1000 1000 / 1000 NS Inj 1,000 ML @ 100 mls/hr IV 1000 / 1000 1000 / 1000 1000 / 1000 .CONT .Q10H [facility] Rx#:[id number] Oral 960 / 960 Output: Urine 850 / 850 Gastric Drainage 0 / 0 Left Lower Quadrant 0 / 0 Wound Drainage 30 / 30 50 / 50 30 / 30 # 1 Abdomen 30 / 30 50 / 50 30 / 30 Other: # Voids 1 Narrative: Alert and awake comfortable no shortness of breath but reports short of breath decreased sats with ambulation Would like more to eat Abd: ATA in place with good seal; J tube to gravity bag; ERIC with bloody drainage - Additional findings Additional findings: ITS Impressions Carotid Doppler Study 05/18/18 00:00 CONCLUSION: 1. Right Internal Carotid Artery: No hemodynamically significant stenosis. 2. Left Internal Carotid Artery: No hemodynamically significant stenosis. Chest X-Ray 05/21/18 00:00 CONCLUSION: Abnormal opacity in the left lung base with blunting of the costophrenic angle which could indicate infiltrate and/or effusion. Laboratory Last Values WBC 5.2 th/mm3 (4.0-11.0) 05/22/18 04:10 RBC 3.83 mil/mm3 (4.50-5.90) L 05/22/18 04:10 Hgb 11.7 gm/dL (13.0-17.0) L 05/22/18 04:10 Hct 35.2 % (39.0-51.0) L 05/22/18 04:10 MCV 91.9 fL (80.0-100.0) 05/22/18 04:10 MCH 30.5 pg (27.0-34.0) 05/22/18 04:10 MCHC 33.2 % (32.0-36.0) 05/22/18 04:10 RDW 15.5 % (11.6-17.2) 05/22/18 04:10 Plt Count 139 th/mm3 (150-450) L 05/22/18 04:10 MPV 8.7 fL (7.0-11.0) 05/22/18 04:10 Prelim Diff (Auto) Slide review pending 05/22/18 04:10 Neut % (Auto) 64.7 % (16.0-70.0) 05/22/18 04:10 Lymph % (Auto) 20.2 % (9.0-44.0) 05/22/18 04:10 [place] % (Auto) 11.3 % (0.0-8.0) H 05/22/18 04:10 Eos % (Auto) 3.1 % (0.0-4.0) 05/22/18 04:10 Baso % (Auto) 0.7 % (0.0-2.0) 05/22/18 04:10 Neut # (Auto) 3.3 th/mm3 (1.8-7.7) 05/22/18 04:10 Lymph # (Auto) 1.0 th/mm3 (1.0-4.8) 05/22/18 04:10 [place] # (Auto) 0.6 th/mm3 (0.0-0.9) 05/22/18 04:10 Eos # (Auto) 0.2 th/mm3 (0.0-0.4) 05/22/18 04:10 Baso # (Auto) 0.0 th/mm3 (0.0-0.2) 05/22/18 04:10 WBC Differential . 05/22/18 04:10 Diff Scan Auto diff confirmed 05/22/18 04:10 Seg Neuts % (Manual) 75 % (16-70) H 05/18/18 04:00 Band Neuts % (Manual) 19 % (0-6) H 05/18/18 04:00 Lymphocytes % (Manual) 6 % (9-44) L 05/18/18 04:00 Abs Neuts (Manual) 9.0 th/mm3 (1.8-7.7) H 05/18/18 04:00 Differential Comment . 05/22/18 04:10 Platelet Estimate Low (Normal) L 05/18/18 04:00 Platelet Morphology Normal (Normal) 05/18/18 04:00 Ovalocytes 1+ (None) H 05/18/18 04:00 Puncture Site Drawn in or 05/17/18 18:45 Patient Temperature 98.6 05/17/18 18:45 O2 Saturation 97 % (90-100) 05/17/18 18:45 ABG pH 7.39 (7.380-7.420) 05/17/18 18:45 ABG pCO2 37 mmHg (38-42) L 05/17/18 18:45 ABG pO2 207 mmHG (61-120) H 05/17/18 18:45 ABG HCO3 22 mmol/L (22-26) 05/17/18 18:45 ABG O2 Content 18.1 Vol % (12.0-20.0) 05/17/18 18:45 ABG Base Excess -2.7 mmol/L (-2-2) L 05/17/18 18:45 ABG Methemoglobin 1.7 % (0-2) 05/17/18 18:45 Alvin Test Present 05/17/18 18:45 Hemoglobin 13.1 G/DL (12.0-16.0) 05/17/18 18:45 Carboxyhemoglobin 0.7 % (0-4) 05/17/18 18:45 O2 Delivery Device Ventilator 05/17/18 18:45 Vent Setting Or settings 05/17/18 18:45 Inspired O2 55 % 05/17/18 18:45 Critical Value No 05/17/18 18:45 Sodium 142 meq/L (136-145) 05/18/18 04:00 Potassium 4.8 meq/L (3.5-5.1) 05/18/18 04:00 Chloride 107 meq/L (98-107) 05/18/18 04:00 Carbon Dioxide 23.4 meq/L (21.0-32.0) 05/18/18 04:00 Anion Gap 12 meq/L (5-15) 05/18/18 04:00 BUN 21 mg/dL (7-18) H 05/18/18 04:00 Creatinine 1.36 mg/dL (0.60-1.30) H 05/18/18 04:00 Estimated GFR 51 mL/min (>89) L 05/18/18 04:00 POC Glucose 109 mg/dl (68-110) 05/20/18 18:37 Random Glucose 191 mg/dL (74-106) H 05/18/18 04:00 Calcium 7.4 mg/dL (8.5-10.1) L* D 05/18/18 04:00 Prot Corrected Calcium 8.1 mg/dL (8.5-10.1) L 05/18/18 04:00 Total Bilirubin 0.5 mg/dL (0.2-1.0) 05/17/18 11:45 Direct Bilirubin 0.1 mg/dL (0.0-0.2) 05/17/18 11:45 Indirect Bilirubin 0.4 mg/dL (0.0-0.8) 05/17/18 11:45 AST 15 U/L (15-37) 05/17/18 11:45 ALT 18 U/L (12-78) 05/17/18 11:45 Alkaline Phosphatase 54 U/L (45-117) 05/17/18 11:45 Total Protein 5.8 g/dL (6.4-8.2) L D 05/18/18 04:00 Albumin 3.9 g/dL (3.4-5.0) 05/17/18 11:45 Blood Type O Positive 05/17/18 11:50 Antibody Screen Negative 05/17/18 11:50 MTS Gel Crossmatch See Detail 05/17/18 11:50 - Urinary Catheter Management Indwelling Urethral Catheter Cath placed during this visit: yes Reason for continuing: Not indwelling catheter Insertion date: 05/17/18 Insertion time: 14:29 Assessment and Plan - Assessment (1) Primary adenocarcinoma of body of stomach Code(s): C16.2 - Malignant neoplasm of body of stomach Status: Acute Plan: 78 year old male POD3 robotic partial gastrectomy; converted to subtotal gastrectomy; RNY reconstruction and J tube placement -Okay sips of water and popsicles -Continue J tube to gravity -Continue to monitor ERCI ---- bloody drainage---if continues or increased will plan to hold Lovenox -IVF + MACHINE I CUTTER -Restart home meds --okay to take with a sip of water Patient is concerned about his pulmonary status would like Dr. Stuart Abdi to see him tomorrow on Wednesday - Attending Attestation NOTE FOR SURGICAL ATTENDING, DR. MARICEL ACKERMAN I attest that I had a [id number] encounter with the patient on the same day, and personally performed and documented my assessment and findings in the medical record. The following services were provided during this hospital visit: Chart data review, vital sign assessments/reviewing monitor data Review of consultations notes if present. Medication orders/review and/or management Ordering and/or reviewing lab tests Ordering and/or interpreting/reviewing x-rays and/or diagnostic studies Care of the patient and discussion of the patient with the care team Documentation time To help prompt me to consider important information that might be impacting today's encounter and assessment, Information from prior notes written by myself or my colleagues may have been "brought forward/copy and pasted" into today's note.
--- NOTE | 2018-05-22 19:43 | MB ---
cc: Tyrone Ho MD DATE: 05/22/2018 REQUESTING PHYSICIAN: Edd Farrell MD REASON FOR CONSULTATION: Pulmonary management. HISTORY OF PRESENT ILLNESS: Mr. Hernández is a pleasant 78-year-old male with history of COPD, CA of the lung, status post resection 13 years ago. He did not require any chemotherapy or radiation treatment. He was found to have gastric carcinoma. The patient underwent surgery. He had robotic surgery with partial gastrectomy, which was changed to subtotal gastrectomy. Postop, he is having mild shortness of breath, is not wheezing. No chest pain. No fever or chills. No night sweats. LABORATORY DATA: His lab evaluation reveals WBC count 5.2, hemoglobin 11.7, hematocrit 35.2, MCV 99, platelet count 139. Sodium 142, potassium 4.8, chloride 107, CO2 is 23, BUN 21, creatinine 1.36. IMAGING: Chest x-ray shows left basal infiltrate versus atelectasis. PAST MEDICAL HISTORY: Significant for history of hypertension, diabetes mellitus, COPD, CA of the lung, status post resection, gastric carcinoma. MEDICATIONS: He is currently takin. Benadryl p.r.n. 2. Lexapro 10 mg a day. 3. Morphine for pain. 4. Zofran p.r.n. 5. Flomax 0.4 mg a day. 6. Spiriva once a day. ALLERGIES: HE IS ALLERGIC TO LEVAQUIN. SOCIAL HISTORY: He has a history of heavy smoking for more than 30 years, which he quit. No alcohol use. 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 FAMILY HISTORY: He is . He has 2 children. REVIEW OF SYSTEMS: SOB with heavy activity . IMPRESSION: 1. Shortness of breath due to underlying chronic obstructive pulmonary disease. 2. Atelectasis versus left basal infiltrate. 3. History of cancer of the lung. 4. Hypertension. 5. Diabetes mellitus. 6. Gastric carcinoma, status post resection. PLAN: I discussed with the patient, will supplement his oxygen, encourage him to use Acapella, give him aerosol treatments, supplement oxygen, to keep saturation greater than 92%. The patient is known to Dr. Aurelio Abdi who will follow this patient. MD SHAYAN Love/markell/angel , 05:52 PM , 06:00 PM [email or web address]
[2018-05-23] MEDS: Sod Chloride 0.9% Inj 1,000 ML IV.CONT SCH ×2 (06:23→17:08)
[2018-05-23 07:21] LABS: Calcium 8.1 mg/dL (8.5-10.1); Carbon Dioxide 24.5 meq/L (21.0-32.0); Potassium 3.3 meq/L (3.5-5.1)
[2018-05-23] MEDS: Escitalopram 10 MG Tablet PO SCH (09:20)
[2018-05-23] MEDS: Brimonidine 0.15% Opth Drops 5 ML Bottle EACH EYE SCH ×2 (09:20→21:30)
[2018-05-23] MEDS: Tiotropium Bromide 18 MCG/ACT Inhaler INH SCH ×2 (09:21→11:10)
--- NOTE | 2018-05-23 11:36 | P.PNGS ---
Subjective Interval history: Resting in bed No issues Physical Exam Vital signs: Vital Signs 05/22/18 12:00 05/22/18 16:00 05/22/18 16:10 Temperature 97.9 F 98.0 F Pulse Rate 122 H 85 110 H Respiratory Rate 16 16 16 Blood Pressure 105/62 143/69 H Pulse Oximetry 97 97 05/22/18 20:00 05/22/18 20:06 05/23/18 00:00 Temperature 99.1 F 98.8 F Pulse Rate 20 L 110 H 100 H Respiratory Rate 20 16 20 Blood Pressure 111/56 L 112/56 L Pulse Oximetry 97 93 L 05/23/18 04:22 05/23/18 08:00 05/23/18 09:50 Temperature 98.0 F Pulse Rate 93 H 89 84 Respiratory Rate 19 18 16 Blood Pressure 154/66 H Pulse Oximetry 95 93 L Intake & Output 05/22/18 05/23/18 05/23/18 18:59 06:59 18:59 Intake Total 1680 / 1680 2180 / 2180 Output Total 1630 / 1630 1025 / 1025 Balance 50 / 50 1155 / 1155 Intake: IV 1000 / 1000 1999 NS Inj 1,000 ML @ 100 mls/hr IV 1000 / 1000 1999 .CONT .Q10H [facility] Rx#:[id number] Oral 680 / 680 180 / 180 Output: Urine 1600 / 1600 1000 / 1000 Gastric Drainage 0 / 0 Left Lower Quadrant 0 / 0 Wound Drainage 30 / 30 25 / 25 # 1 Abdomen 30 / 30 25 / 25 Narrative: Alert and awake Abd: ATA in place with drainage noted on the inferior portion of dressing; ERIC with thin bloody drainage; J tube to gravity Anderson in place with clear yellow urine - Urinary Catheter Management Indwelling Urethral Catheter Cath placed during this visit: yes Reason for continuing: Not indwelling catheter Insertion date: 05/17/18 Insertion time: 14:29 Assessment and Plan - Assessment (1) Primary adenocarcinoma of body of stomach Code(s): C16.2 - Malignant neoplasm of body of stomach Status: Acute Plan: 78 year old male POD6 robotic partial gastrectomy; converted to subtotal gastrectomy; RNY reconstruction and J tube placement -Okay for sips of water and popsicles -Continue J tube to gravity -Continue to monitor ERIC -IVF + JIG BORER -Consult to Pulmonary ---Dr. Abdi -PT - Attending Attestation The exam, history, and the medical decision-making described in the above note were completed with the assistance of the mid-level provider. I reviewed and agree with the findings presented. I attest that I had a [id number] encounter with the patient on the same day, and personally performed and documented my assessment and findings in the medical record. 78yo male s/p subtotal gastrectomy, stable postop. clear liquids OOB with PT
[2018-05-23] MEDS: Enoxaparin Inj 40 MG/0.4 ML Syringe SQ SCH (13:21)
--- NOTE | 2018-05-23 14:47 | P.PNCA ---
Subjective Interval history: dyspnea improved with breathing treatments Physical Exam Vital signs: Vital Signs 05/22/18 16:00 05/22/18 16:10 05/22/18 20:00 Temperature 98.0 F 99.1 F Pulse Rate 85 110 H 20 L Respiratory Rate 16 16 20 Blood Pressure 143/69 H 111/56 L Pulse Oximetry 97 97 05/22/18 20:06 05/23/18 00:00 05/23/18 04:22 Temperature 98.8 F Pulse Rate 110 H 100 H 93 H Respiratory Rate 16 20 19 Blood Pressure 112/56 L Pulse Oximetry 93 L 05/23/18 08:00 05/23/18 09:50 05/23/18 12:00 Temperature 98.0 F 98.5 F Pulse Rate 89 84 90 Respiratory Rate 18 16 17 Blood Pressure 154/66 H 141/65 H Pulse Oximetry 95 93 L 96 Intake & Output 05/22/18 05/23/18 05/23/18 18:59 06:59 18:59 Intake Total 1680 / 1680 2180 / 2180 Output Total 1630 / 1630 1025 / 1025 20 / 20 Balance 50 / 50 1155 / 1155 -20 / -20 Intake: IV 1000 / 1000 1999 NS Inj 1,000 ML @ 100 mls/hr IV 1000 / 1000 1999 .CONT .Q10H [facility] Rx#:[id number] Oral 680 / 680 180 / 180 Output: Urine 1600 / 1600 1000 / 1000 Gastric Drainage 0 / 0 Left Lower Quadrant 0 / 0 Wound Drainage 30 / 30 25 / 25 20 / 20 # 1 Abdomen 30 / 30 25 / 25 20 / 20 - Urinary Catheter Management Indwelling Urethral Catheter Cath placed during this visit: yes Reason for continuing: Not indwelling catheter Insertion date: 05/17/18 Insertion time: 14:29 Assessment and Plan - Assessment (1) Hypotension Code(s): I95.9 - Hypotension, unspecified Status: Acute (2) Near syncope Code(s): R55 - Syncope and collapse Status: Acute (3) Primary adenocarcinoma of body of stomach Code(s): C16.2 - Malignant neoplasm of body of stomach Status: Acute - Plan 1.) Near syncope - assymptomatic sitting in chair, symptomatic with dypnea and light headedness transferring from bed to chair, will f/u trends, hemodynamically stable, no documented bradycardia 2.) Dyspnea - improving with breathing treatments, bnp=87, check 2d echo
[2018-05-24] MEDS: Sod Chloride 0.9% Inj 1,000 ML IV.CONT SCH (05:36)
--- NOTE | 2018-05-24 09:06 | P.PNGS ---
Subjective Interval history: Tolerated clear liquids; would like to try Fulls No issues overnight Physical Exam Vital signs: Vital Signs 05/23/18 09:50 05/23/18 12:00 05/23/18 15:49 Temperature 98.5 F Pulse Rate 84 90 82 Respiratory Rate 16 17 16 Blood Pressure 141/65 H Pulse Oximetry 93 L 96 05/23/18 16:00 05/23/18 20:00 05/23/18 20:49 Temperature 98.3 F 97.4 F L Pulse Rate 98 H 97 H 97 H Respiratory Rate 17 18 20 Blood Pressure 153/71 H 141/63 H Pulse Oximetry 96 96 05/24/18 00:00 05/24/18 04:00 Temperature 98.3 F 97.7 F Pulse Rate 98 H 87 Respiratory Rate 20 18 Blood Pressure 97/55 L 133/60 Pulse Oximetry 94 L 94 L Intake & Output 05/23/18 05/24/18 05/24/18 18:59 06:59 18:59 Intake Total 1480 / 1480 1240 / 1240 Output Total 840 / 840 1330 / 1330 Balance 640 / 640 -90 / -90 Weight 90.4 kg Intake: IV 1000 / 1000 1000 / 1000 NS Inj 1,000 ML @ 30 mls/hr IV. 1000 / 1000 1000 / 1000 CONT .Q24H [facility] Rx#:[id number] Oral 480 / 480 240 / 240 Output: Urine 800 / 800 1300 / 1300 Gastric Drainage 0 / 0 Left Lower Quadrant 0 / 0 Wound Drainage 40 / 40 30 / 30 # 1 Abdomen 40 / 40 30 / 30 Other: # Bowel Movements 0 Narrative: Alert and awake Abd: soft; ATA in place with some drainage; ERIC with dark old blood drainage; J tube capped Anderson in place with clear yellow urine - Urinary Catheter Management Indwelling Urethral Catheter Cath placed during this visit: yes Reason for continuing: Not indwelling catheter Insertion date: 05/17/18 Insertion time: 14:29 Assessment and Plan - Assessment (1) Primary adenocarcinoma of body of stomach Code(s): C16.2 - Malignant neoplasm of body of stomach Status: Acute Plan: 78 year old male POD7 robotic partial gastrectomy; converted to subtotal gastrectomy; RNY reconstruction and J tube placement -Advance to full liquids -Cap J tube -Continue to monitor ERIC -DC IVF + HOTEL OPERATIONS MANAGER -Added [place] PRN for pain -Pulmonary following -DC Anderson - Attending Attestation The exam, history, and the medical decision-making described in the above note were completed with the assistance of the mid-level provider. I reviewed and agree with the findings presented. I attest that I had a [id number] encounter with the patient on the same day, and personally performed and documented my assessment and findings in the medical record. 78yo male s/p subtotal gastrectomy, stable postop. tolerating clears, advance d/w patient and family
[2018-05-24] MEDS: Escitalopram 10 MG Tablet PO SCH (10:51)
[2018-05-24] MEDS: Brimonidine 0.15% Opth Drops 5 ML Bottle EACH EYE SCH ×2 (10:52→21:15)
[2018-05-24] MEDS: Tiotropium Bromide 18 MCG/ACT Inhaler INH SCH (10:52)
--- NOTE | 2018-05-24 13:40 | P.PNCA ---
Subjective Interval history: alert in nad, denies near syncope, dyspnea improving Physical Exam Vital signs: Vital Signs 05/23/18 15:49 05/23/18 16:00 05/23/18 20:00 Temperature 98.3 F 97.4 F L Pulse Rate 82 98 H 97 H Respiratory Rate 16 17 18 Blood Pressure 153/71 H 141/63 H Pulse Oximetry 96 96 05/23/18 20:49 05/24/18 00:00 05/24/18 04:00 Temperature 98.3 F 97.7 F Pulse Rate 97 H 98 H 87 Respiratory Rate 20 20 18 Blood Pressure 97/55 L 133/60 Pulse Oximetry 94 L 94 L 05/24/18 09:23 Temperature Pulse Rate 81 Respiratory Rate 16 Blood Pressure Pulse Oximetry 93 L Intake & Output 05/23/18 05/24/18 05/24/18 18:59 06:59 18:59 Intake Total 1480 / 1480 1240 / 1240 Output Total 840 / 840 1330 / 1330 Balance 640 / 640 -90 / -90 Weight 90.4 kg Intake: IV 1000 / 1000 1000 / 1000 NS Inj 1,000 ML @ 30 mls/hr IV. 1000 / 1000 1000 / 1000 CONT .Q24H [facility] Rx#:[id number] Oral 480 / 480 240 / 240 Output: Urine 800 / 800 1300 / 1300 Gastric Drainage 0 / 0 Left Lower Quadrant 0 / 0 Wound Drainage 40 / 40 30 / 30 # 1 Abdomen 40 / 40 30 / 30 Other: # Bowel Movements 0 - Urinary Catheter Management Indwelling Urethral Catheter Cath placed during this visit: yes Reason for continuing: Not indwelling catheter Insertion date: 05/17/18 Insertion time: 14:29 Assessment and Plan - Assessment (1) Hypotension Code(s): I95.9 - Hypotension, unspecified Status: Acute (2) Near syncope Code(s): R55 - Syncope and collapse Status: Acute (3) Primary adenocarcinoma of body of stomach Code(s): C16.2 - Malignant neoplasm of body of stomach Status: Acute - Plan 1.) Near syncope - assymptomatic sitting in chair, symptomatic with dypnea and light headedness transferring from bed to chair, will f/u trends, hemodynamically stable, no documented bradycardia 2.) Dyspnea - improving with breathing treatments, bnp=87, ef=60% on 2d echo
[2018-05-24] MEDS: Enoxaparin Inj 40 MG/0.4 ML Syringe SQ SCH (13:59)
[2018-05-25] MEDS: Escitalopram 10 MG Tablet PO SCH (08:29)
[2018-05-25] MEDS: Tiotropium Bromide 18 MCG/ACT Inhaler INH SCH (08:30)
[2018-05-25] MEDS: Brimonidine 0.15% Opth Drops 5 ML Bottle EACH EYE SCH (08:30)
--- NOTE | 2018-05-25 11:19 | P.DCO ---
- Physical Therapy Order: Evaluate and treat, Improve ambulation, Strength and gait training Instructions: No restrictions - Home Health Nursing Order: Oxygen administration education, Wound care and dressing changes Instructions: Continue ATA to midline incision---if fails or loose seal---place dry Primaopre to incision 4x4 gauze around J tube (LEFT) and prior ERIC site (Right) Continue routine J tube half-way oxygen now 05/04 - Certification I have seen patient Iam Hernández on 05/25/18. My clinical findings support the need for the requested home health care services because: Patient has SOB I certify that my clinical findings support that this patient is homebound because: Post-op weakness, Hx COPD - exertion dyspnea/weakness
[2018-05-25] MEDS: Enoxaparin Inj 40 MG/0.4 ML Syringe SQ SCH (12:05)
--- NOTE | 2018-05-25 12:16 | P.PNCA ---
Subjective Interval history: alert in nad, denies light headedness, dyspnea improving Physical Exam Vital signs: Vital Signs 05/24/18 15:12 05/24/18 16:00 05/24/18 20:00 Temperature 98.1 F 99.3 F Pulse Rate 84 83 84 Respiratory Rate 16 18 20 Blood Pressure 136/62 175/73 H Pulse Oximetry 93 L 96 Pulse Oximetry [Exertion on Room Air] Pulse Oximetry [Resting on Room Air] Pulse Oximetry [Resting with Oxygen] 05/24/18 20:48 05/25/18 00:00 05/25/18 03:42 Temperature 97.9 F Pulse Rate 68 81 89 Respiratory Rate 16 20 13 Blood Pressure 126/58 L Pulse Oximetry 96 Pulse Oximetry [Exertion on Room Air] Pulse Oximetry [Resting on Room Air] Pulse Oximetry [Resting with Oxygen] 05/25/18 08:00 05/25/18 09:38 05/25/18 10:02 Temperature 98.2 F Pulse Rate 84 89 Respiratory Rate 18 16 Blood Pressure 123/58 L Pulse Oximetry 96 96 Pulse Oximetry [Exertion on Room Air] 79 L Pulse Oximetry [Resting on Room Air] 91 L Pulse Oximetry [Resting with Oxygen] 98 Intake & Output 05/24/18 05/25/18 05/25/18 18:59 06:59 18:59 Intake Total 1020 / 1020 0 / 0 Output Total 30 / 30 Balance 1000 / 1000 -30 / -30 Weight 88.3 kg Intake: IV 300 / 300 NS Inj 1,000 ML @ 30 mls/hr IV. 300 / 300 CONT .Q24H [facility] Rx#:[id number] Oral 720 / 720 0 / 0 Output: Wound Drainage 30 / 30 # 1 Abdomen / 20 30 30 Other: # Voids 3 0 # Bowel Movements 1 - Urinary Catheter Management Indwelling Urethral Catheter Cath placed during this visit: yes Reason for continuing: Not indwelling catheter Insertion date: 05/17/18 Insertion time: 14:29 Assessment and Plan - Assessment (1) Hypotension Code(s): I95.9 - Hypotension, unspecified Status: Acute (2) Near syncope Code(s): R55 - Syncope and collapse Status: Acute (3) Primary adenocarcinoma of body of stomach Code(s): C16.2 - Malignant neoplasm of body of stomach Status: Acute - Plan 1.) Near syncope - assymptomatic sitting in chair, symptomatic with dypnea and light headedness transferring from bed to chair, will f/u trends, hemodynamically stable, no documented bradycardia 2.) Dyspnea - improving with breathing treatments, bnp=87, ef=60% on 2d echo 3.) Advised patient to f/u with his automobile mechanic, Dr Baldwin, michelle
[2018-05-25 13:06] VITALS: BP 111/56; TEMP 98.4; O2SAT 96
--- NOTE | 2018-05-25 13:47 | P.DS ---
Date of admission: 05/17/18 11:15 Primary care physician: Hilary Johnson MD Attending physician on discharge: Tru Bright Anticipated date of discharge: 05/25/18 Brief History from admission: 78 year old male s/p robotic partial gastrectomy; converted to subtotal gastrectomy; RNY reconstruction and J tube placement DS: Diagnosis - Discharge Diagnosis (1) Primary adenocarcinoma of body of stomach Status: Acute DS: Medications - Discharge Medications Prescriptions: hydrocodone-acetaminophen 1 tab PO Q4H PRN #10 tab PRN Reason: acute post op pain exception DS: Summary Hospital Course: This is a 78 year old male s/p robotic partial gastrectomy; converted to subtotal gastrectomy; RNY reconstruction and J tube placement. The patient was able to tolerate a full liquid diet. His ERIC drain was removed. His J tube was capped. His pain is controlled. HHC was arranged. He will need to be on oxygen continuos. The patient will follow up with the next May. - Time Spent with Patient Total time spent providing and/or coordinating discharge services: Less than 30 minutes - Quality: VTE Deep Vein Thrombosis/Pulmonary Embolism Present on Admission: No Exam Vital signs: Vital Signs 05/24/18 15:12 05/24/18 16:00 05/24/18 20:00 Temperature 98.1 F 99.3 F Pulse Rate 84 83 84 Respiratory Rate 16 18 20 Blood Pressure 136/62 175/73 H Pulse Oximetry 93 L 96 Pulse Oximetry [Exertion on Room Air] Pulse Oximetry [Resting on Room Air] Pulse Oximetry [Resting with Oxygen] 05/24/18 20:48 05/25/18 00:00 05/25/18 03:42 Temperature 97.9 F Pulse Rate 68 81 89 Respiratory Rate 16 20 13 Blood Pressure 126/58 L Pulse Oximetry 96 Pulse Oximetry [Exertion on Room Air] Pulse Oximetry [Resting on Room Air] Pulse Oximetry [Resting with Oxygen] 05/25/18 08:00 05/25/18 09:38 05/25/18 10:02 Temperature 98.2 F Pulse Rate 84 89 Respiratory Rate 18 16 Blood Pressure 123/58 L Pulse Oximetry 96 96 Pulse Oximetry [Exertion on Room Air] 79 L Pulse Oximetry [Resting on Room Air] 91 L Pulse Oximetry [Resting with Oxygen] 98 05/25/18 12:00 Temperature 98.4 F Pulse Rate 75 Respiratory Rate 18 Blood Pressure 111/56 L Pulse Oximetry 96 Pulse Oximetry [Exertion on Room Air] Pulse Oximetry [Resting on Room Air] Pulse Oximetry [Resting with Oxygen] Intake & Output 05/24/18 05/25/18 05/25/18 18:59 06:59 18:59 Intake Total 1020 / 1020 0 / 0 Output Total 30 / 30 Balance 1000 / 1000 -30 / -30 Weight 88.3 kg Intake: IV 300 / 300 NS Inj 1,000 ML @ 30 mls/hr IV. 300 / 300 CONT .Q24H [facility] Rx#:[id number] Oral 720 / 720 0 / 0 Output: Wound Drainage # 1 Abdomen Other: # Voids 3 0 # Bowel Movements 1 Narrative: Alert and awake Resp: CTAB Abd: soft; Midline incision with replaced ATA dressing; J tube capped; Prior ERIC site dressing changed No edema Results Procedures completed during hospitalization: 78 year old male s/p robotic partial gastrectomy; converted to subtotal gastrectomy; RNY reconstruction and J tube placement Completed studies during hospitalization: Pending at discharge 05/17/18 07:21 Surgical [PTH] Routine Labs on day of discharge: Labs from last 24 hours 05/24/18 15:14 POC Glucose 136 H - Impressions ITS Impressions Carotid Doppler Study 05/18/18 00:00 CONCLUSION: 1. Right Internal Carotid Artery: No hemodynamically significant stenosis. 2. Left Internal Carotid Artery: No hemodynamically significant stenosis. Chest X-Ray 05/21/18 00:00 CONCLUSION: Abnormal opacity in the left lung base with blunting of the costophrenic angle which could indicate infiltrate and/or effusion. Discharge Plan - Discharge Disposition Patient Disposition: W/Home Health Service - Discharge Condition Condition: Good - Discharge Order Discharge Orders: Discharge Order (Routine); Ordered 05/25/18 Ordered By: Joanna Kirkpatrick - Discharge Details Anticipated Discharge Date: 05/25/18 Discharge Comment: rx on chart - Physicians Team Primary Care Provider: Hilary Johnson Attending Provider: Tru Bright Other Providers: William Arvizu MD ; Herson Barrera MD ; Sur[facility] ; Tyrone Ho MD - Rxs /Orders / Referrals /Forms Prescriptions: New hydrocodone-acetaminophen 5-325 mg Tablet 1 tab PO Q4H PRN (Reason: acute post op pain exception ) Qty: 10 RF: 0 Continue albuterol sulfate [ProAir HFA] 90 mcg/actuation Hfa Aerosol Inhaler 1 puff INHALATION Q4-6H PRN (Reason: Shortness Of Breath) ascorbic acid (vitamin C) 500 mg Tablet 500 mg PO BID aspirin [Aspirin Low Dose] 81 mg Tablet,Delayed Release (Dr/Ec) 81 mg PO DAILY brimonidine [Alphagan P] 0.1 % Drops 1 drp OPHTHALMIC (EYE) BID calcium carbonate [Calcium 500] 500 mg calcium (1,250 mg) Tablet 600 mg PO BID canagliflozin [Invokana] 100 mg Tablet 50 mg PO DAILY carbidopa-levodopa 25-100 mg Tablet 2 tab PO HS cholecalciferol (vitamin D3) [Vitamin D3] 1,000 unit Capsule 1,000 unit PO BID coenzyme Q10 [Co Q-10] 100 mg Capsule 100 mg PO DAILY escitalopram oxalate 10 mg Tablet 10 mg PO DAILY ginkgo biloba 40 mg Tablet 1 cap PO DAILY glimepiride 4 mg Tablet 4 mg PO BID ipratropium-albuterol 0.5 mg-3 mg(2.5 mg base)/3 mL Solution For Nebulization 3 ml INHALATION Q6-8H PRN (Reason: Shortness Of Breath) pantoprazole 40 mg Tablet,Delayed Release (Dr/Ec) 40 mg PO DAILY pioglitazone 30 mg Tablet 30 mg PO DAILY pravastatin 40 mg Tablet 40 mg PO DAILY tamsulosin [Flomax] 0.4 mg Capsule,Extended Release 24hr 0.4 mg PO HS temazepam 15 mg Capsule 15 - 30 mg PO HS PRN (Reason: Insomnia) tiotropium bromide [Spiriva with HandiHaler] 18 mcg Capsule, W/Inhalation Device 1 cap INHALATION DAILY vit C,[id number] [PreserVision AREDS 2] [id number] mg-unit-mg -mg Capsule 1 tab PO BID Ambulatory Orders / Order Sets / DME: Oxygen Tank (2-5 liter) (Routine) Location: Determined by Patient Ordered By: Joanna Kirkpatrick Referrals: Tru Bright MD [Physician] - See Instructions (Appt set for Jun 02 at 10:50 AM) Hilary Johnson MD [Primary Care Provider] - See Instructions - Discharge Instructions Patient Printed Instructions: Laparoscopic Sleeve Gastrectomy (DC)
[2018-05-25 15:10] VITALS: PULSE 65; RESP 16
== END 2018-05-25 16:53 | disposition home health service (06) ==
LOC: HSDI 11:15 → N03 22:47 → N07 05-19 17:41
PROVIDERS: ADMIT Surgery; ATTEND Surgery